=== PATIENT | male | born 1965 | race Caucasian/White ===

== ENCOUNTER 2018-06-26 08:19 | Emergency (ER) | payer BC ==
[2018-06-26] MEDS ORDERED: METHYLPREDNISOLONE 40MG/VIAL IM ONE (08:30)
--- NOTE | 2018-06-26 08:37 | Emergency Department Record ---
History of Present Illness - General Chief complaint: Lower Extremity Pain Stated complaint: LEG PAIN X3 WKS Time Seen by Provider: 06/26/18 08:21 Source: Patient Mode of Arrival: Ambulatory Limitations: No limitations - History of Present Illness Initial comments: 53 yo male presents with about 3 weeks of lumbar, glutteal and leg pain on the right side. 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 He has to lift sometime up to 100 pounds. He has had lumbar pain that radiates into the right buttocks and into the right leg for about 3 weeks. He has had some right foot tingling as well. No back surgery. No fever. No direct trauma. He saw Dr Woodruff. He was started on Valium. His pain is not controlled. No follow up since the original visit. MD Complaint: Extremity pain, Other (Lumbar pain) -: Week(s) (3) Location: Right History of Same: Yes -: Yes Arthralgia Radiation: Distal Quality: Aching Consistency: Constant Improves with: Rest Worsens with: Exertion, Walking, Weight bearing Associated Symptoms: Other - Related Data Home Medications Medication Instructions Recorded Confirmed Last Taken Cyclobenzaprine HCl [Flexeril] 10 mg PO TID 06/26/18 06/26/18 06/26/18 Diazepam [Valium] 5 mg PO TID 06/26/18 06/26/18 06/26/18 Losartan Potassium 25 mg PO DAILY 06/26/18 06/26/18 06/26/18 Previous Rx's Medication Instructions Recorded Methylprednisolone [Medrol Dose 4 mg PO DAILY #1 tab.ds.pk 06/26/18 Pack] Allergies Allergy/AdvReac Type Severity Reaction Status Date / Time Penicillins Allergy SWELLING Verified 06/26/18 08:37 OF THE FACE Review of Systems Constitutional: Denies: Chills, Fever, Weakness Eyes: Denies: Eye discharge ENT: Denies: Congestion, Throat pain Respiratory: Denies: Cough, Dyspnea, Wheezes Cardiovascular: Denies: Chest pain Endocrine: Denies: Fatigue Gastrointestinal: Denies: Abdominal pain, Diarrhea, Nausea, Vomiting Genitourinary: Denies: Dysuria, Frequency, Hematuria, Incontinence, Retention, Urgency Musculoskeletal: Reports: Back pain, Myalgia Skin: Denies: Bruising, Change in color, Rash Neurological: Reports: Tingling. Denies: Abnormal gait, Confusion, Headache, Numbness, Weakness Psychiatric: Denies: Anxiety Hematological/Lymphatic: Denies: Easy bleeding, Easy bruising Physical Exam - General General Appearance: Alert, Oriented x3, Cooperative, No acute distress Limitations: No limitations - Head Head exam: Atraumatic, Normal inspection - Eye Eye exam: Normal appearance. negative: Conjunctival injection - ENT ENT exam: Normal exam Ear exam: Normal external inspection Nasal Exam: Normal inspection Mouth exam: Normal external inspection - Neck Neck exam: Normal inspection - Respiratory Respiratory exam: Normal lung sounds bilaterally. negative: Respiratory distress - Cardiovascular Cardiovascular Exam: Regular rate, Normal rhythm, Normal heart sounds Peripheral Pulses: 2+: Radial (R) - GI/Abdominal GI/Abdominal exam: Soft. negative: Distended, Tenderness - Rectal Rectal exam: Deferred - exam: Deferred - Extremities Extremities exam: Normal inspection, Full ROM, Normal capillary refill. negative: Calf tenderness, Joint swelling, Pedal edema - Back Back exam: Reports: Normal inspection, Full ROM, Paraspinal tenderness, Tenderness, Vertebral tenderness (low midline lumbar). Denies: CVA tenderness ( R) - Neurological Neurological exam: Alert, Normal gait, Oriented X3, Reflexes normal, Other (EHL intact full strength, negative straight leg raise). negative: Abnormal gait, Altered, Motor sensory deficit - Psychiatric Psychiatric exam: Normal affect, Normal mood. negative: Agitated, Anxious - Skin Skin exam: Dry, Intact, Normal color, Warm. negative: Cyanosis, Diaphoretic, Erythema, Mottled Course - Reevaluation(s) Reevaluation #1: Neuro examination is intact as test as well as the reflexes. Steady gate. Pain with walking. XR ordered I encouraged him to call his PCP today to follow up last weeks appointment he had with Dr Woodruff If the pain continues he may require further work up or treatment of the back pain with radicular symptoms. 06/26/18 08:35 06/26/18 09:09 The XR's were reviewed. 6 Lumbar vertebra Multilevel degenerative changes notes. L6 on S1 lithesis noted. MRI FU recommended 06/26/18 09:32 The patient has been on the phone with his PCP. I encourage the close follow up and likely MRI based on his symptoms and Xr's. 06/26/18 09:40 Disposition Disposition: Discharge Clinical Impression: Sciatica Qualifiers: Laterality: right Qualified Code(s): M54.31 - Sciatica, right side Disposition: Home, Self-Care Condition: (1) Good Instructions: Sciatica (ED) Additional Instructions: Take the prescriptions provided today as directed. Call your family doctor. Call to schedule the next available appointment for a recheck. Return to ED if your symptoms worsen or if you have any new concerns. Review the final Emergency Record and test results with your doctor on follow up Prescriptions: Methylprednisolone [Medrol Dose Pack] 4 mg PO DAILY #1 tab.ds.pk Forms: Patient Portal Access Time of Disposition: 08:37 Quality - Quality Measures Quality Measures: N/A - Blood Pressure Screening Does Patient Have Any of the Following: Active Dx of HTN Blood Pressure Classification: Hypertensive Reading Systolic Measurement: 150 Diastolic Measurement: 117 Screening for High Blood Pressure: Patient Exclusion, Hx of HTN [[id number]]
--- NOTE | 2018-06-28 21:55 | RADIOLOGY REPORT ---
EXAM: LUMBAR SPINE W/OBLIQUES HISTORY: LUMBAR PAIN AND RIGHT-SIDED LEG PAIN WITH RIGHT FOOT NUMBNESS FOR THREE WEEKS. TECHNIQUE: Five views of the lumbar spine obtained including oblique views. COMPARISON: None. FINDINGS: Prominent amount of stool incidentally noted raising the possibility of constipation and clinical correlation is suggested. There are probably six lumbar-type vertebrae present. Narrowing of the lumbosacral interspace and, to a lesser degree, the immediately superior interspace, which apparently corresponds to the L5-6 level and L6-S1 level. There is mild posterior subluxation of L5 on L6 and mild anterior subluxation of L6 on S1. The region of the pars interarticularis of L6 is somewhat poorly seen on the oblique views but, on the lateral view, there is a suggestion of spondylolysis of L6. Follow- up MRI of the lumbar spine might be useful for further evaluation. Mild spurring more superiorly in the lumbar spine. IMPRESSION: 1. THERE APPEAR TO BE SIX LUMBAR-TYPE VERTEBRAE. 2. NARROWING OF THE L6-S1 INTERSPACE WITH MILD ANTERIOR SUBLUXATION OF L6 ON S1. POSSIBLE SPONDYLOLYSIS OF L6, SEEN IN THE LATERAL VIEW IN PARTICULAR. FOLLOW-UP MRI MAY BE USEFUL. THERE MAY ALSO BE SPINA BIFIDA OF L6. 3. MILD NARROWING OF THE L5-6 INTERSPACE WITH MILD SPURRING AT THIS LEVEL WELL MORE SUPERIORLY IN THE LUMBAR SPINE WELL. JOB NUMBER: [id number] [facility]
== END 2018-06-26 09:44 | disposition home or self-care (01) ==
LOC: ER 08:19
DX: M51.17 Intervertebral disc disorders with radiculopathy, lumbosacral region (principal)
CPT/HCPCS: 72110; 96372; 99283; 99284; J1030